=== PATIENT | female | born 1990 | race American Indian/Alaskan Native ===

== ENCOUNTER → 2020-03-10 09:51 | Outpatient (BNVA) | payer MEDICARE, MEDICAID, SELFPAY | PROVIDERS: PCP Family Medicine; Referring Provider Family Medicine; Visit Provider Nurse Practitioner Adult Health | DX: G56.03 Carpal tunnel syndrome, bilateral upper limbs (principal); E11.9 Type 2 diabetes mellitus without complications; Z79.4 Long term (current) use of insulin | CPT/HCPCS: 95910; 99203 ==

== ENCOUNTER 2021-11-23 11:10 | Outpatient (CLI) | payer MEDICARE, MEDICAID, SELFPAY ==
--- NOTE | 2021-11-23 06:00 | DI.RAD_ITS ---
Exam(s) XR PAIN CLINIC FLUORO JOINT IN EXAM: XR PAIN CLINIC FLUORO JOINT IN CLINICAL HISTORY: Dx: Osteoarthritis of the knee TECHNIQUE: 2D and realtime digital imaging was performed. Radiologist not present. CONTRAST MATERIAL: None. COMPARISON: No exams were available for comparison FINDINGS: Fluoroscopy was provided for pain management therapy. Please refer to procedure report or details. Cumulative dose: Kar=2.24 mGy IMPRESSION: RADIATION DOSE DELIVERED:
[2021-11-23 11:21] VITALS: BP 100/72; PULSE 98; RESP 20; TEMP 36.7; O2SAT 99
[2021-11-23 11:56] VITALS: PULSE 102; O2SAT 100
[2021-11-23] MEDS: Bupivacaine 0.5% Pres-Free 30 ML VIAL IJ (11:57)
[2021-11-23] MEDS: Omnipaque 240 MG/ML 50 ML BTL IJ (11:57)
--- NOTE | 2021-11-23 14:07 | PDOC.PAIN_ITS ---
Pain Clinic Procedure Note Procedure Note Procedure Note: RIGHT GENICULAR NERVE BLOCK Date of Service: November 23, 2021 Patient: JOSHUA BANKS Provider: Terrence Noriega DO, MPH Pre-operative diagnosis: Knee pain Post-operative diagnosis: Same Pre-procedure pain: VAS= 5/10 COMMENTS: She was evaluated in this clinic by Dr. Fields on 09/28/21 JOSHUA BANKS has been [facility] for RIGHT genicular nerve block. JOSHUA was interviewed and the medical record reviewed. There were no medical, pharmacologic, radiographic or other structural contraindications to attempting fluoroscopically guided RIGHT genicular nerve block. Risks and potential side effects as well as potential benefit of the procedure were reviewed with JOSHUA, and HER voiced concerns were addressed. After I believed that the patient was completely informed, the printed consent form was signed. Standard time-out procedure was performed. JOSHUA was placed in the supine position on the fluoroscopy table and automated blood pressure cuff and pulse oximeter applied. The skin entry points for approaching RIGHT superolateral genicular nerve, the superomedial genicular nerve, the terminal branch of the nerve vastus intermedius and the inferomedial genicular was identified under the most advantageous fluoroscopic view and marked. Following thorough Chlorhexadine preparation of the skin and draping, 1% lidocaine infiltration of the skin entry point and subcutaneous tissues was accomplished using a 1.5 25G needle. Next, the 3.5 25G spinal needle was advanced to os at the location of the specific nerve root using fluoroscopic guidance. Next, 1 ml of 1% Lidocaine was injected at each site. The needles were removed without difficulty. JOSHUA's vital signs were stable throughout the procedure and were as recorded in the docflowsheet by the nursing staff. If given, dosages of intravenous drugs for anxiolysis and analgesia were documented in MAR. Follow up plans and appointments were discussed with the JOSHUA . Post procedure instruction was given as documented in nursing documentation and having met discharge criteria, JOSHUA was [facility] from the [facility]. COMMENTS: No apparent complications. Post-procedure pain: VAS = 3/10. The patient will keep track of her RIGHT knee pain over the next four hours. If JOSHUA has sufficient pain relief, JOSHAU will be a candidate for radiofrequency ablation at the same nerves. Marcus WJ1, Faith SJ, Mike SandersG, Cory SandersG, Oni COLLIER, Judie PH, Kirk JW. Radiofrequency treatment relieves chronic knee osteoarthritis pain: a double-blind randomized controlled trial. Pain. 2011 Aug;152(3):481-7. doi: 10.1016/j.pain.2010.09.029. Kathryn S1, Rafael ON2, Isabel Y3, ?zl?heladio P2, Lukas U1, Randy ?m?rl? I. Which one is more effective for the clinical treatment of chronic pain in knee osteoarthritis: radiofrequency neurotomy of the genicular nerves or intra- articular injection? Int J Rheum Dis. 2016 Jan 27. F/U with our office to give her 1-4 hour post-procedure pain VAS scores. I personally performed this entire procedure. Terrence Noriega DO, MPH Attending Physician Pain Management
== END 2021-11-23 11:11 | disposition home or self-care (01) ==
LOC: PC 11:10
PROVIDERS: PCP Family Medicine; Visit Provider Preventive Medicine Occupational Medicine
DX: M25.561 Pain in right knee (principal)
CPT/HCPCS: 64454; 77002; Q9967

== ENCOUNTER 2022-04-06 08:52 | Outpatient (CLI) | payer MEDICARE, MEDICAID, SELFPAY ==
[2022-04-06 09:04] VITALS: BP 108/81; PULSE 82; RESP 20; TEMP 36.8; O2SAT 100
[2022-04-06] MEDS: fentaNYL 100 MCG/2 ML VIAL IVP (09:33)
--- NOTE | 2022-04-06 09:59 | DI.RAD_ITS ---
Exam(s) XR PAIN CLINIC FLUORO JOINT IN EXAM: XR PAIN CLINIC FLUORO JOINT IN CLINICAL HISTORY: Dx: Chronic Knee Pain TECHNIQUE: 2D and realtime digital imaging was performed. COMPARISON: No exams were available for comparison FINDINGS: C-arm fluoroscopy was utilized by Dr. Noriega. Please see the procedure note. IMPRESSION: RADIATION DOSE DELIVERED: ana rosa Sanchez=2.61 mGy
[2022-04-06 10:00] VITALS: BP 113/65; PULSE 91; RESP 18; O2SAT 100
--- NOTE | 2022-04-06 10:12 | PDOC.PAIN_ITS ---
Date of service: 04/06/22 Time of Service: 10:16 Pain Clinic Procedure Note Procedure Note Procedure Note: RIGHT GENICULAR NERVE RADIOFREQUENCY ABLATION WITH THE AVENOS MACHINE Date of Service: April 06, 2022 Patient: Silvana Correia Provider: Terrence Noriega DO, MPH Pre-operative diagnosis: Right knee pain Post-operative diagnosis: Right knee pain Pre-procedure pain VAS was 5/10. COMMENTS: Previous Genicular nerve block to the RIGHT knee. Silvana Correia has been referred to the [facility] for RIGHT genicular nerve radiofrequency ablation. Silvana was interviewed and the medical record reviewed. There were no medical, pharmacologic, radiographic or other structural contraindications to attempting fluoroscopically guided RIGHT genicular nerve radiofrequency ablation. Risks and potential side effects as well as potential benefit of the procedure were reviewed with Silvana Corriea , and HER voiced concerns were addressed. After I believed that the patient was completely informed, the printed consent form was signed. Standard time-out procedure was performed. Silvana was placed in the supine position on the fluoroscopy table and automated blood pressure cuff and pulse oximeter applied. The skin entry points for approaching RIGHT superolateral genicular nerve, the superomedial genicular nerve and the inferomedial genicular was identified under the most advantageous fluoroscopic view and marked. Following thorough Chlorhexadine preparation of the skin and draping, 1% lidocaine infiltration of the skin entry point and subcutaneous tissues was accomplished using a 1.5 25G needle. Next, the 10 cm 18G RF Cannula with a 10 mm active tip was advanced to os at the location of the specific nerve roots (3) using fluoroscopic guidance. Next, sensory and motor testing was performed and no abnormal findings were found. Next, 1 cc of 2% Lidocaine was injected at each site. The lesion was then created with 80 degrees C for 90 seconds. Each needle was advance 1 cm and the lesion was completed again. Each cannula was advanced until the tip reached the posterior aspect of the bone shaft. 1/3 cc of Depomedrol (40 mg/cc) was then injected at each site followed by 2 cc of 0.5% Bupivacaine as the needle was withdrawn. The needles were removed without difficulty. Silvana's vital signs were stable throughout the procedure and were as recorded in the docflowsheet by the nursing staff. If given, dosages of intravenous drugs for anxiolysis and analgesia were documented in MAR. Follow up plans and appointments were discussed with the Silvana Correia . Post procedure instruction was given as documented in nursing documentation and having met discharge criteria, Silvana was discharged from the [facility]. COMMENTS: No complications. Marcus WJ1, Faith SJ, Mike JG, Cory SandersG, Oni COLLIER, Judie PH, Kirk JW. Radiofrequency treatment relieves chronic knee osteoarthritis pain: a double-blind randomized controlled trial. Pain. 2010;152(3):481-7. doi: 10.1016/j.pain.2010.09.029. Kathryn S1, Rafael ON2, Isabel Y3, ?zl?heladio P2, Lukas U1, Randy ?m?rl? I. Which one is more effective for the clinical treatment of chronic pain in knee osteoarthritis: radiofrequency neurotomy of the genicular nerves or intra- articular injection? Int J Rheum Dis. 2016 Jan 27. F/U with our office as needed. Post-procedure pain VAS was 2/10. Terrence Noriega DO, MPH [facility]
[2022-04-06] MEDS: Bupivacaine 0.5% Pres-Free 10 ML VIAL IJ (10:19)
[2022-04-06] MEDS: methylPREDNISolone ACETATE 40 MG/ML VIAL IJ (10:21)
[2022-04-06] MEDS: Lidocaine 2% Pres-Free 5 ML VIAL IJ (10:21)
== END 2022-04-06 08:53 | disposition home or self-care (01) ==
LOC: PC 08:54
PROVIDERS: PCP Family Medicine; Visit Provider Preventive Medicine Occupational Medicine
DX: M25.561 Pain in right knee (principal)
CPT/HCPCS: 64624; 77002; J1030; J3010

== ENCOUNTER 2022-09-06 09:37 | Outpatient (CLI) | payer MEDICARE, MEDICAID, SELFPAY ==
--- NOTE | 2022-09-06 06:00 | DI.RAD_ITS ---
Exam(s) XR PAIN CLINIC FLUORO JOINT IN EXAM: XR PAIN CLINIC FLUORO JOINT IN CLINICAL HISTORY: Dx: knee pain TECHNIQUE: 2D and realtime digital imaging was performed. CONTRAST MATERIAL: Refer to procedure report. COMPARISON: No exams were available for comparison FINDINGS: Fluoroscopy was provided for Dr. Noriega during the performance of a left knee genicular nerve block. Please refer to the procedure report for complete details. Ka,r=1.68 mGy IMPRESSION: RADIATION DOSE DELIVERED:
[2022-09-06 09:50] VITALS: BP 127/87; PULSE 101; RESP 20; TEMP 36.7; O2SAT 98
[2022-09-06 10:27] VITALS: BP 147/98; PULSE 106; RESP 17; O2SAT 98
[2022-09-06] MEDS: Omnipaque 240 MG/ML 50 ML BTL IJ (10:34)
[2022-09-06] MEDS: Bupivacaine 0.5% Pres-Free 10 ML VIAL IJ (10:34)
--- NOTE | 2022-09-06 12:25 | PDOC.PAIN_ITS ---
Date of service: 09/06/22 Time of Service: 11:00 Pain Clinic Procedure Note Procedure Note Procedure Note: LEFT GENICULAR NERVE BLOCK Date of Service: September 06, 2022 Patient: Silvana Correia Provider: Terrence Noriega DO, MPH Pre-operative diagnosis: Knee pain Post-operative diagnosis: Same Pre-procedure pain: VAS= 6/10 COMMENTS: Please see separate clinic note for today. Silvana Correia has been referred to the [facility] for LEFT genicular nerve block. Silvana was interviewed and the medical record reviewed. There were no medical, pharmacologic, radiographic or other structural contraindications to attempting fluoroscopically guided LEFT genicular nerve block. Risks and potential side effects as well as potential benefit of the procedure were reviewed with Silvana , and HER voiced concerns were addressed. After I believed that the patient was completely informed, the printed consent form was signed. Standard time-out procedure was performed. Silvana was placed in the supine position on the fluoroscopy table and automated blood pressure cuff and pulse oximeter applied. The skin entry points for approaching LEFT superolateral genicular nerve, the superomedial genicular nerve, the terminal branch of the nerve vastus intermedius and the inferomedial genicular was identified under the most advantageous fluoroscopic view and marked. Following thorough Chlorhexadine preparation of the skin and draping, 1% lidocaine infiltration of the skin entry point and subcutaneous tissues was accomplished using a 1.5 25G needle. Next, the 3.5 25G spinal needle was advanced to os at the location of the specific nerve root using fluoroscopic guidance. Next, 1 ml of 1% Lidocaine was injected at each site. The needles were removed without difficulty. Silvana's vital signs were stable throughout the procedure and were as recorded in the docflowsheet by the nursing staff. If given, dosages of intravenous drugs for anxiolysis and analgesia were documented in MAR. Follow up plans and appointments were discussed with the Silvana . Post procedure instruction was given as documented in nursing documentation and having met discharge criteria, Silvana was discharged from the [facility]. COMMENTS: No apparent complications. Post-procedure pain: VAS = 0/10. The patient will keep track of her LEFT knee pain over the next four hours. If Silvana has sufficient pain relief, Silvana will be a candidate for radiofrequency ablation at the same nerves. Marcus WJ1, Faith SJ, Mike SandersG, Cory SandersG, Oni COLLIER, Park PH, Kirk JW. Radiofrequency treatment relieves chronic knee osteoarthritis pain: a double-blind randomized controlled trial. Pain. 2011 Aug;152(3):481-7. doi: 10.1016/j.pain.2010.09.029. Kathryn S1, Rafael ON2, Isabel Y3, ?zl?heladio P2, Lukas U1, Randy ?m?rl? I. Which one is more effective for the clinical treatment of chronic pain in knee osteoarthritis: radiofrequency neurotomy of the genicular nerves or intra- articular injection? Int J Rheum Dis. 2016 Jan 27. F/U with our office by phone. Terrence Noriega DO, MPH [facility]
== END 2022-09-06 09:38 | disposition home or self-care (01) ==
LOC: PC 09:37
PROVIDERS: PCP Family Medicine; Visit Provider Preventive Medicine Occupational Medicine
DX: M25.562 Pain in left knee (principal)
CPT/HCPCS: 64454; 77002; Q9967